=== PATIENT | male | born 1965 | race Caucasian/White ===

== ENCOUNTER → 2016-12-05 | Outpatient (CLI) | payer OTHER ==
[~2016-12-05] MED LIST: ASPIRIN EC81 M1 PO; FAMOTIDINE PO; FLOMAX0.4 M1 PO; FOLIC ACID PO; FOLIC ACID1 MG; LIBRIUM25 MG; LIBRIUM25 MG PO; LORTAB 5-325 M1 EACH PO; LORTAB 7.5-5001 TAB PO; LOTENSIN PO; METOPROLOL TAR25 MG PO; MULTI-VITAMIN1 EAC1 PO; OMEPRAZOLE20 M2 PO; PROZAC10 MG PO; THIAMINE HCL100 M1 PO; THIAMINE HCL100 MG PO
--- NOTE | ~2016-12-05 | MR17 ---
[facility] A Service of [facility] RADIOLOGY TEXT RESULTS PATIENT: SHANON MONTERO LOCATION: [facility] : 65 UNIT #: [id number] AGE: [address]: Steve Gupta II, MD SEX: M ORDER DR: [id number] [place] [id number] O MR#: [id number] Acc #: [id number] NAME: SHANON MONTERO : 1965 SEX: M STUDY DATE/TIME: 12/05/2016 14:46 UNIT: [facility] ROOM: STUDY DESCRIPTION: MR Brain WWo Contrast Attending Physician: Steve Gupta II., M.D. Referring Physician: Steve Gupta II., M.D. Ordering Physician: Steve Gupta II., M.D. Primary Care Physician: Familia Gaviria M.D. [facility]ENTER REPORT This report is preliminary unless electronic signature is present. EXAM Brain MRI with and without contrast HISTORY Ataxia, memory disturbance. Vertigo gradually worsening over the past 2 years. TECHNIQUE Multiplanar imaging of the brain was performed with and without contrast. 15 mL of MultiHance was used. FINDINGS On diffusion weighted images there is no evidence of abnormal restricted diffusion. The routine brain images show mild atrophy with mild chronic ischemic changes in the periventricular deep white matter. There is no evidence of mass lesion, hemorrhage or edema. The temporal lobes are symmetric. After contrast administration no abnormal enhancement is seen. Extraaxial structures are unremarkable. IMPRESSION Mild atrophy with mild chronic ischemic changes around the ventricles. Otherwise negative. Dictated by... Lane Lipscomb M.D. THIS IS AN ELECTRONICALLY VERIFIED REPORT Lane Lipscomb M.D. at 12/06/2016 4:10 PM RLF/to TD: 12/06/2016 11:33 JOB #: [id number] [facility] A Service [facility] RADIOLOGY TEXT RESULTS PATIENT: SHANON MONTERO LOCATION: [facility] : 65 UNIT #: [id number] AGE: [address]: Steve Gupta II, MD SEX: M ORDER DR: MRI CENTER REPORT Page 1 of 1
--- NOTE | ~2016-12-05 | MR31 ---
[facility] A Service of [facility] RADIOLOGY TEXT RESULTS PATIENT: SHANON MONTERO LOCATION: [facility] : 65 UNIT #: [id number] AGE: [address]: Steve Gupta II, MD SEX: M ORDER DR: [id number] [place] [id number] O MR#: [id number] Acc #: [id number] NAME: SHANON MONTERO : 1965 SEX: M STUDY DATE/TIME: 12/05/2016 15:13 UNIT: [facility] ROOM: STUDY DESCRIPTION: MR Cervical WWo Contrast Attending Physician: Steve Gupta II., M.D. Referring Physician: Steve Gupta II., M.D. Ordering Physician: Steve Gupta II., M.D. Primary Care Physician: Familia Gaviria M.D. MRI CENTER REPORT This report is preliminary unless electronic signature is present. EXAM Cervical MRI with and without contrast HISTORY Balance disturbance with ataxia and memory problems and vertigo gradually worsening over the past 2 years. TECHNIQUE Multiplanar imaging of the cervical spine was performed with and without contrast. 15 mL of MultiHance was used. FINDINGS Alignment is satisfactory. There are moderate degenerative changes at the mid cervical discs. At C3-4, there is a small asymmetric disc osteophyte complex, slightly worse to the right than to the left. There is no significant central stenosis. Foraminal narrowing on the right is mild. At C4-5, there is broad-based posterior disc bulging and osteophyte formation, which is mild. There is moderately severe left-sided facet hypertrophy with severe left foraminal narrowing as a result. At C5-6, there is central to left of central disc protrusion with mild canal narrowing and mild bilateral foraminal narrowing. At C6-7 and C7-T1, the canal and foramina are widely patent. The cord is normal in size and signal. There is no evidence of marrow edema or paraspinous mass. After contrast administration no abnormal enhancement is seen either in the cord or paraspinous tissues. IMPRESSION [facility] A Service of [facility] RADIOLOGY TEXT RESULTS PATIENT: SHANON MONTERO LOCATION: [facility] : 65 UNIT #: [id number] AGE: [address]: Steve Gupta II, MD SEX: M ORDER DR: Multilevel degenerative disc and facet disease, as described above. Foraminal stenosis is moderately severe on the left at C4-5. No evidence of cord lesion or abnormal enhancement of the cord with contrast. Dictated by... Lane Lipscomb M.D. THIS IS AN ELECTRONICALLY VERIFIED REPORT Lane Lipscomb M.D. at 12/06/2016 4:10 PM PHILLIP/alysha TD: 12/06/2016 11:37 JOB #: [id number] MRI [facility]ENTER REPORT Page 1 of 1
== END | disposition home or self-care (01) ==
LOC: SMRI 11-28 13:45
DX: R27.0 Ataxia, unspecified (principal); G31.9 Degenerative disease of nervous system, unspecified; M50.30 Other cervical disc degeneration, unspecified cervical region; M47.892 Other spondylosis, cervical region; M25.78 Osteophyte, vertebrae; M50.821 Other cervical disc disorders at C4-C5 level; M50.222 Other cervical disc displacement at C5-C6 level
CPT/HCPCS: 70553; 72156; A9581